=== PATIENT | male | born 1970 | race Caucasian/White ===

== ENCOUNTER 2019-04-30 09:21 | Day surgery (SDC) | payer BC ==
[~2019-04-30] VITALS: Ht 188 cm; Wt 133.5 kg
[2019-04-30] MEDS ORDERED: METF500 (09:41)
[2019-04-30] MEDS ORDERED: ATOR20 (09:47)
[2019-04-30] MEDS ORDERED: LOSA25 (09:47)
[2019-04-30] MEDS ORDERED: GLIM4 (09:47)
--- NOTE | 2019-04-30 10:52 | NUR ---
04/30/19 1052 Susi Zapata SIMETHICONE USED DURING PROCEDURE.
== END 2019-04-30 12:02 | disposition home or self-care (01) ==
LOC: ORSCSDS 09:21
PROVIDERS: Student in an Organized Health Care Education/Training Program
PROC: 0DBL8ZX Excision of Transverse Colon, Via Natural or Artificial Opening Endoscopic, Diagnostic (ICD-10-PCS; principal; 2019-04-30 10:45)
PROC: 0DBH8ZX Excision of Cecum, Via Natural or Artificial Opening Endoscopic, Diagnostic (ICD-10-PCS; principal; 2019-04-30 10:45)
PROC: 0DBE8ZX Excision of Large Intestine, Via Natural or Artificial Opening Endoscopic, Diagnostic (ICD-10-PCS; principal; 2019-04-30 10:45)
DX: R19.7 Diarrhea, unspecified (principal); K63.5 Polyp of colon; K64.8 Other hemorrhoids; R10.9 Unspecified abdominal pain; E11.9 Type 2 diabetes mellitus without complications; I10 Essential (primary) hypertension; E78.00 Pure hypercholesterolemia, unspecified; Z87.891 Personal history of nicotine dependence
CPT/HCPCS: 82947; 88305; J2704; J7120